=== PATIENT | male | born 1955 | race Two or more races ===

== ENCOUNTER → 2018-07-01 | Outpatient (CLI) | payer MEDICARE, OTHER ==
[2018-07-01 12:53] LABS: BASOPHILS % (AUTO) 0.4 % (0.0-2.0); EOSINOPHILS % (AUTO) 2.2 % (1.0-6.0); HEMATOCRIT 37.3 % (41-53); HEMOGLOBIN 12.6 g/dL (13.5-17.5); LYMPHOCYTES # (AUTO) 0.8 K/uL (1.0-4.8); LYMPHOCYTES % (AUTO) 13.8 % (22.0-44.0); MEAN CORPUSCULAR HEMOGLOBIN 31.6 pg (26.0-34.0); MEAN CORPUSCULAR HGB CONC 33.7 G/dL (31.0-37.0); MEAN CORPUSCULAR VOLUME 94 fL (80-100); MONOCYTES # (AUTO) 0.8 K/uL (0.1-1.0); MONOCYTES % (AUTO) 13.5 % (2.0-9.0); NEUTROPHILS # (AUTO) 4.3 K/uL (1.8-7.7); NEUTROPHILS % (AUTO) 70.1 % (40.0-70.0); PLATELET COUNT (AUTO) 312 K/uL (150-450); RED BLOOD CELL COUNT(AUTO) 3.99 MIL/uL (4.50-5.90)
[2018-07-01 13:06] LABS: B-TYPE NATRIURETIC PEPTIDE 9 pg/mL (0-100)
[2018-07-01 13:07] LABS: ALANINE AMINOTRANSFERASE 26 U/L (12-78); ALBUMIN 3.2 g/dL (3.4-5.0); ALKALINE PHOSPHATASE 118 U/L (46-116); ANION GAP 8 mmol/L (8-16); ASPARTATE AMINOTRANSFERASE 34 U/L (15-37); BILIRUBIN,TOTAL 0.2 mg/dL (0.1-1.0); CALCIUM, TOTAL 8.4 mg/dL (8.8-10.5); CARBON DIOXIDE 28 mmol/L (22-29); CHLORIDE 105 mmol/L (98-107); CHOL/HDL RATIO 4.8 (4.2-7.3); CHOLESTEROL 163 mg/dL (131-200); CREATININE 0.89 mg/dL (0.60-1.30); GLOMERULAR FILTR. RATE CALC > 60 mL/min (>60); GLUCOSE,RANDOM 96 mg/dL (70-110); HDL CHOLESTEROL 34 mg/dL (40-60); LDL CHOL (CALC.) 109 mg/dL (0-130); POTASSIUM 4.4 mmol/L (3.5-5.1); SODIUM SERUM 141 mmol/L (136-145); THYROID STIMULATING HORMONE 1.28 uIU/mL (0.36-3.74); TOTAL PROTEIN, SERUM 7.3 g/dL (6.4-8.2); TRIGLYCERIDES 98 mg/dL (15-150); UREA NITROGEN, BLOOD 7 mg/dL (7-18)
[2018-07-01 13:23] LABS: FREE T4 (FREE THYROXINE) 0.72 ng/dL (0.76-1.46)
== END | disposition home or self-care (01) ==
LOC: MSR 10:30
PROVIDERS: ATTEND Internal Medicine Cardiovascular Disease
DX: M47.894 Other spondylosis, thoracic region (principal); I11.0 Hypertensive heart disease with heart failure; I50.9 Heart failure, unspecified; E11.9 Type 2 diabetes mellitus without complications; E55.9 Vitamin D deficiency, unspecified; D56.5 Hemoglobin E-beta thalassemia; R06.02 Shortness of breath
CPT/HCPCS: 82306; 83036; 83735; 84439; 84443

== ENCOUNTER 2019-02-04 10:58 | Day surgery (SDC) | payer MEDICARE, OTHER ==
[2019-02-04] MEDS ORDERED: LIDOCAINE/PF 2% 5 ML VIAL INJ ONE (10:59)
[2019-02-04] MEDS ORDERED: PROPOFOL 1% 20 ML VIAL IVP ONE (10:59)
[2019-02-04] MEDS ORDERED: SODIUM CHLORIDE 0.9% 1,000 ML IV ONE ×2 (11:10→12:00)
[2019-02-04] MEDS ORDERED: MULT1CAP32 PO (11:31)
[2019-02-04] MEDS ORDERED: FERR-89 PO (11:31)
[2019-02-04] MEDS ORDERED: ATOR40TA28 PO (11:31)
[2019-02-04] MEDS ORDERED: ALBU8.5H8 IH (11:31)
[2019-02-04] MEDS ORDERED: CLOP75TA3 PO (11:31)
[2019-02-04] MEDS ORDERED: PERCT10 PO (11:31)
[2019-02-04] MEDS ORDERED: BUPR100T6 PO (11:31)
[2019-02-04] MEDS ORDERED: NICO1PAT49 TD (11:31)
[2019-02-04] MEDS ORDERED: GABA-533 PO (11:31)
[2019-02-04] MEDS ORDERED: AZIT250T9 PO (11:31)
[2019-02-04] MEDS ORDERED: ASPI81TA39 PO (11:31)
[2019-02-04 11:54] LABS: BASOPHILS % (AUTO) 0.9 % (0.0-2.0); EOSINOPHILS % (AUTO) 1.4 % (1.0-6.0); HEMATOCRIT 41.1 % (41-53); HEMOGLOBIN 13.2 g/dL (13.5-17.5); LYMPHOCYTES # (AUTO) 1.1 K/uL (1.0-4.8); LYMPHOCYTES % (AUTO) 15.6 % (22.0-44.0); MEAN CORPUSCULAR HEMOGLOBIN 26.9 pg (26.0-34.0); MEAN CORPUSCULAR HGB CONC 32.2 G/dL (31.0-37.0); MEAN CORPUSCULAR VOLUME 84 fL (80-100); MONOCYTES # (AUTO) 0.9 K/uL (0.1-1.0); MONOCYTES % (AUTO) 13.5 % (2.0-9.0); NEUTROPHILS # (AUTO) 4.6 K/uL (1.8-7.7); NEUTROPHILS % (AUTO) 68.6 % (40.0-70.0); PLATELET COUNT (AUTO) 254 K/uL (150-450); RED BLOOD CELL COUNT(AUTO) 4.91 MIL/uL (4.50-5.90); RED CELL DISTRIBUTION WIDTH 22.7 % (11.5-14.5)
[2019-02-04] MEDS ORDERED: MIDAZOLAM HCL 5 MG/ML VIAL ONE (12:47)
[2019-02-04] MEDS ORDERED: FentaNYL CITRATE-PF 100 MCG/2 ML VIAL ONE (12:47)
== END 2019-02-04 14:55 | disposition home or self-care (01) ==
LOC: SURGERY 10:58
PROVIDERS: ATTEND Student in an Organized Health Care Education/Training Program
DX: K25.9 Gastric ulcer, unspecified as acute or chronic, without hemorrhage or perforation (principal); K29.50 Unspecified chronic gastritis without bleeding; K31.89 Other diseases of stomach and duodenum; K22.8 Other specified diseases of esophagus; K29.80 Duodenitis without bleeding; K21.0 Gastro-esophageal reflux disease with esophagitis; I25.10 Atherosclerotic heart disease of native coronary artery without angina pectoris; I50.9 Heart failure, unspecified; K21.9 Gastro-esophageal reflux disease without esophagitis; D50.9 Iron deficiency anemia, unspecified; Z89.619 Acquired absence of unspecified leg above knee
CPT/HCPCS: 36415; 43239; 85025; 88305; 88312; 88313; C1769; J2704; J3490; J7030; J2250; J3010

== ENCOUNTER 2019-05-07 11:18 | Day surgery (SDC) | payer MEDICARE, OTHER ==
[~2019-05-07] VITALS: Ht 167.6 cm; Wt 90.1 kg
[~2019-05-07 11:18] MED LIST: ASPI81TA39 PO; ATOR40TA28 PO; AZIT250T9 PO; BUPR100T6 PO; CLOP75TA3 PO; GABA-533 PO; MULT1CAP32 PO; NICO-704 TD; PERCT10 PO; SODIUM CHLORIDE 0.9% 1,000 ML IV ONE
[2019-05-07] MEDS ORDERED: PROPOFOL 1% 20 ML VIAL IVP ONE (11:19)
[2019-05-07] MEDS ORDERED: LIDOCAINE/PF 2% 5 ML SYRINGE IVP ONE (11:19)
[2019-05-07] MEDS: SODIUM CHLORIDE 0.9% 1,000 ML IV ONE (11:53)
== END 2019-05-07 15:00 | disposition home or self-care (01) ==
LOC: SURGERY 11:18
PROVIDERS: ATTEND Student in an Organized Health Care Education/Training Program
DX: K63.5 Polyp of colon (principal); K62.1 Rectal polyp; K64.8 Other hemorrhoids; K25.9 Gastric ulcer, unspecified as acute or chronic, without hemorrhage or perforation; K22.8 Other specified diseases of esophagus; I25.10 Atherosclerotic heart disease of native coronary artery without angina pectoris; I50.9 Heart failure, unspecified; D50.9 Iron deficiency anemia, unspecified; F17.210 Nicotine dependence, cigarettes, uncomplicated; K21.9 Gastro-esophageal reflux disease without esophagitis; Z79.899 Other long term (current) drug therapy; E78.00 Pure hypercholesterolemia, unspecified; Z98.890 Other specified postprocedural states; Z89.612 Acquired absence of left leg above knee
CPT/HCPCS: 45385; 43239; C1769; J2704; J3490; J7030

== ENCOUNTER 2021-02-02 10:46 | Day surgery (SDC) | payer MEDICARE, OTHER ==
[~2021-02-02] VITALS: Ht 177.8 cm; Wt 90.9 kg
[~2021-02-02 10:46] MED LIST changes: +AZIT-84 PO; -AZIT250T9 PO; -CLOP75TA3 PO; +CLOP75TA60 PO; +GABA-1201 PO; -GABA-533 PO; -NICO-704 TD; +NICO-803 TD; +OXYC-601 PO; -PERCT10 PO; -SODIUM CHLORIDE 0.9% 1,000 ML IV ONE; +SODIUM CHLORIDE 0.9% 1,000 ML ONE
[2021-02-02 11:22] LABS: COVID AG,FIA SOURCE NASOPHARYNGEAL
[2021-02-02] MEDS ORDERED: SODIUM CHLORIDE 0.9% 1,000 ML IV ONE (11:30)
[2021-02-02] MEDS ORDERED: LIDOCAINE/PF 2% 5 ML VIAL IM ONE (12:00)
[2021-02-02] MEDS ORDERED: PROPOFOL 1% 20 ML VIAL IVP ONE (12:00)
[2021-02-02] MEDS ORDERED: FentaNYL CITRATE PF 100 MCG/2 ML VIAL ONE (12:34)
[2021-02-02] MEDS ORDERED: MIDAZOLAM HCL 5 MG/ML VIAL ONE (12:34)
== END 2021-02-02 14:30 | disposition home or self-care (01) ==
LOC: SURGERY 10:46
PROVIDERS: ATTEND Student in an Organized Health Care Education/Training Program
DX: K25.9 Gastric ulcer, unspecified as acute or chronic, without hemorrhage or perforation (principal); D50.9 Iron deficiency anemia, unspecified; K21.9 Gastro-esophageal reflux disease without esophagitis; K31.89 Other diseases of stomach and duodenum; E66.3 Overweight; I10 Essential (primary) hypertension; Z79.899 Other long term (current) drug therapy; Z98.890 Other specified postprocedural states
CPT/HCPCS: 43239; 87426; C1769; C9803; J2704; J3490; J7030; 88305; 88312; 88313; J2250; J3010